=== PATIENT | male | born 1960 ===

== ENCOUNTER 2020-02-09 14:26 | Outpatient (REF) | payer SELFPAY ==
[2020-02-10 16:24] LABS: COVID-19 RT-PCR UVMMC Result Negative (Negative)
== END 2020-02-09 14:46 ==
LOC: NCHCN 14:26
PROVIDERS: PCP Nurse Practitioner Family; Visit Provider Nurse Practitioner Family
DX: Z11.59 Encounter for screening for other viral diseases (principal)
CPT/HCPCS: U0003